=== PATIENT | male | born 1995 | race African-American/Black ===

== ENCOUNTER 2022-02-01 19:16 | Emergency (ER) | payer OTHER ==
[~2022-02-01] VITALS: Ht 188 cm; Wt 72.6 kg
[2022-02-01 19:57] VITALS: BP 142/83
--- NOTE | 2022-02-01 19:59 | NUR ---
BIBS C/O TOOTH PAIN X1DAY. PATIENT STATES HE WILL SEE HIS DENTIST TOMORROW. PATIENT ALERT AND ORIENTED X3. AMBULATORY WITH NON LABORED BREATHING. IN CHAIR 01.
[2022-02-01] MEDS ORDERED: NAPR-1009 PO (20:07)
[2022-02-01] MEDS ORDERED: KETOROLAC TROMETHAMINE INJ 30 MG/ML VIAL ONE (20:08)
[2022-02-01] MEDS: KETOROLAC TROMETHAMINE INJ 30 MG/ML VIAL IM ONE (20:10)
--- NOTE | 2022-02-01 20:28 | NUR ---
Patient discharged to home in stable condition. Written and verbal after care instructions given. Patient verbalizes understanding of instruction.
== END 2022-02-01 20:30 | disposition home or self-care (01) ==
LOC: ER 19:22
DX: K02.9 Dental caries, unspecified (principal); F17.200 Nicotine dependence, unspecified, uncomplicated; Z79.1 Long term (current) use of non-steroidal anti-inflammatories (NSAID)
CPT/HCPCS: 96372; 99283; 99406; J1885